=== PATIENT | female | born 1970 | race American Indian/Alaskan Native ===

== ENCOUNTER 2016-04-25 15:34 | Outpatient (CLI) | payer MEDICARE ==
--- NOTE | 2016-04-25 16:20 | XRay Report ---
Chest 2 views. Findings: The heart and lungs reveal no acute or significant abnormalities. There is mild scoliosis of the dorsal spine. Impression: No acute findings.
== END 2016-04-25 15:35 | disposition home or self-care (01) ==
LOC: XRAY 15:34
PROVIDERS: ATTEND Family Medicine
DX: R76.11 Nonspecific reaction to tuberculin skin test without active tuberculosis (principal); M41.80 Other forms of scoliosis, site unspecified
CPT/HCPCS: 71020

== ENCOUNTER 2017-03-27 13:07 | Outpatient (CLI) | payer MEDICARE ==
--- NOTE | 2017-03-28 15:10 | Mammography Report ---
BILATERAL DIGITAL SCREENING MAMMOGRAM with CAD: 03/27/17 13:07:00 CLINICAL: Routine screening. COMPARISON:None. FINDINGS: Examination was done in a wheelchair because the patient could not stand for the exam. Suboptimal positioning on the MLO views. The breasts are heterogeneously dense, which may obscure small masses. No mass, architectural distortion or suspicious calcifications. IMPRESSION: No mammographic evidence of malignancy. BI-RADS CATEGORY: 1 - - Negative RECOMMENDATION: Routine mammographic screening in one year. COMMENT: Patient follow-up letters are generated by our [employer] application.
== END 2017-03-27 13:08 | disposition home or self-care (01) ==
LOC: MAMMO 13:07
PROVIDERS: ATTEND Family Medicine
DX: Z12.31 Encounter for screening mammogram for malignant neoplasm of breast (principal)
CPT/HCPCS: 77067